=== PATIENT | female | born 1970 | race Caucasian/White ===

== ENCOUNTER 2022-08-22 09:51 | Emergency (ER) | payer MEDICAID ==
[2022-08-22 10:35] VITALS: BP 122/84; PULSE 89; O2SAT 96
[2022-08-22 11:01] LABS: Appearance Clear; Bacteria None Seen /HPF; Bilirubin Negative; Blood Moderate; Epithelial Cells Rare /HPF; Glucose, Urine Negative; Hyaline Casts NONE SEEN /LPF; Ketones Negative; Leukocyte Esterase Negative; Nitrite Negative; Ph 5.5; Protein,Urine Dip Negative; Specific Gravity 1.015
[2022-08-22 11:04] LABS: ADD URINE CULTURE? NO (NO)
[2022-08-22 11:17] LABS: Absolute Neutrophil Ct (ANC) 4.27 x10^3/uL; BASOPHIL % 0.8 % (0.0-0.4); Basophil (Absolute #) 0.06 x10^3/uL; Eosinophil % 2.6 %; Eosinophil (Absolute #) 0.19 x10^3/uL; Hematocrit 42.7 %; Hemoglobin 14.4 g/dL; IMMATURE GRAN # 0.03 x10^3u/L; IMMATURE GRAN % 0.4 %; Lymphocyte (Absolute #) 2.23 x10^3/uL; Lymphocytes % 30.3 %; Mean Cell Volume 100.9 fL; Mean Corpuscular Hgb Concent. 33.7 g/dL; Mean Platelet Volume 9.2 fL; Monocyte (Absolute #) 0.58 x10^3/uL; Monocytes % 7.9 % (0.0-12.0); Platelet Count 278 x10^3/uL; Red Blood Count 4.23 x10^6/uL; Red Cell Distribution Width 12.3 %; White Blood Count 7.4 x10^3/uL
[2022-08-22 11:33] LABS: ALBUMIN 4.4 g/dL (3.5-5.0); ALKALINE PHOSPHATASE 118 U/L (38-126); AMYLASE 76 U/L (30-110); ANION GAP 9.6 MEQ/L (5-15); BLOOD UREA NITROGEN 13 mg/dL (7-17); CHLORIDE 107 mmol/L (98-107); Calcium 9.1 mg/dL (8.4-10.2); Carbon Dioxide 25 mmol/L (22-30); Creatinine 1 0.49 mg/dL (0.52-1.04); EST GLOMERULAR FILTRATION RATE > 60.0 ML/MIN; Glucose 128 mg/dL (74-106); LIPASE 44 U/L (23-300); SGOT/AST 22 U/L (14-36); SGPT/ALT 23 U/L (0-35); SODIUM 138 mmol/L (137-145); Total Protein 7.3 g/dL (6.3-8.2)
--- NOTE | 2022-08-22 11:45 | ERPHSYRPT ---
- History of Present Illness Historian: patient Exam Limitations: no limitations Patient Subjective Stated Complaint: Patient states that she has been having some discomfort/ pressure in her left epigastric area right under the breast, The patient states that is started about a couple weeks ago that but that the pressure is getting worse. Patient states that when she is in bed she can feel it move around. " It feels like a bubble moving around". Patient states that there isnt any pain just dicomfort at this time. The area is hard firm lump under left breast. Triage Nursing Assessment: Pt A&O x3. Ambulated to the bed per self. Patient lungs clear, heart sounds WNL. Skin CDI. Patient has left epigastric pain under the left breast. Upon palpation there is a firm area under left breast. Patient sattes that it doesn't hurt it is just discomfort. Physician History: 52 yo Wf w LUQ pain x 2 wks. Pain is 3/10 but has been up to 7/10. Nothing makes the pain better or worse and N/V/D/melena/hematochezia/dysuria/hematuria/fever/cough/coryza/chest pain are all denied. Timing/Duration: other (2 wks) Activities at Onset: rest Quality: pressure Abdominal Pain Onset Location: LUQ Pain Radiation: no radiation Severity of Pain-Max: moderate Severity of Pain-Current: mild Modifying Factors: Improves With: nothing Associated Symptoms: denies symptoms Previous symptoms: no prior history Travel Risk - International Travel Have you traveled outside of the country in past 3 weeks: No - Coronavirus Screening Are you exhibiting any of the following symptoms?: No Close contact with a COVID-19 positive Pt in past 14-21 Days: No - Vaccine Status Have you recieved a Covid-19 vaccination: No - Review of Systems Constitutional: No Symptoms Eyes: No Symptoms Ears, Nose, & Throat: No Symptoms Respiratory: No Symptoms Cardiac: No Symptoms Abdominal/Gastrointestinal: No Symptoms, Abdominal Pain Genitourinary Symptoms: No Symptoms Musculoskeletal: No Symptoms Skin: No Symptoms Neurological: No Symptoms Psychological: No Symptoms Endocrine: No Symptoms Hematologic/Lymphatic: No Symptoms Immunological/Allergic: No Symptoms - Past Medical History Neurological History: Migraines ENT History: No Pertinent History Cardiac History: Congestive Heart Failure Respiratory History: CHF Endocrine Medical History: No Pertinent History Musculoskeletal History: No Pertinent History GI Medical History: No Pertinent History History: No Pertinent History Psycho-Social History: No Pertinent History Female Reproductive Disorders: No Pertinent History - Past Surgical History Past Surgical History: Yes Neuro Surgical History: No Pertinent History Cardiac: No Pertinent History Respiratory: No Pertinent History Gastrointestinal: No Pertinent History Genitourinary: No Pertinent History Musculoskeletal: No Pertinent History Female Surgical History: No Pertinent History, Tubal Ligation, Other - Social History Smoking Status: Current every day smoker How long have you smoked: 35 Drug Use: none Patient Lives Alone: No - Nursing Vital Signs Nursing Vital Signs: Initial Vital Signs Temperature 98 F 08/22/22 10:14 Pulse Rate 89 08/22/22 10:14 Respiratory Rate 16 08/22/22 10:14 Blood Pressure 122/84 08/22/22 10:14 O2 Sat by Pulse Oximetry 96 08/22/22 10:14 Pain Scale Pain Intensity 4 WNL - Physical Exam General Appearance: no apparent distress Eye Exam: PERRL/EOMI, eyes nml inspection Ears, Nose, Throat Exam: normal ENT inspection, TMs normal, pharynx normal, moist mucous membranes Neck Exam: normal inspection, non-tender, supple, full range of motion, No meningismus, No mass, No Brudzinski, No Kernig's, No carotid bruit Respiratory Exam: normal breath sounds, lungs clear Cardiovascular Exam: regular rate/rhythm, normal heart sounds, normal peripheral pulses, capillary refill <2 sec, No murmur Gastrointestinal/Abdomen Exam: soft, normal bowel sounds, tenderness (Mild LUQ TTP wo guarding or rebound) Back Exam: normal inspection, normal range of motion, No CVA tenderness, No vertebral tenderness Extremity Exam: normal inspection, normal range of motion Neurologic Exam: alert, oriented x 3, cooperative, 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, normal mood/affect, nml cerebellar function, nml station & gait, sensation nml, No motor deficits, No sensory deficit Skin Exam: normal color, warm, dry Lymphatic Exam: No adenopathy SpO2 Interpretation: normal SpO2: 96 O2 Delivery: Room Air - Course Nursing assessment & vital signs reviewed: Yes - CT Exams Abdomen/Pelvis CT Interpretation: Discussed w/radiologist (L renal cortical calcification/Fecal stasis/Uterine fibroid) Ordered Tests: Active Orders 24 hr Category Date Time Status ABDOMEN AND PELVIS W/0 CONTRAS [CT] Stat Exams 08/22/22 11:57 Completed AMYLASE Stat Lab 08/22/22 08:00 Completed CBC W DIFF Stat Lab 08/22/22 08:00 Completed CMP Stat Lab 08/22/22 08:00 Completed LIPASE Stat Lab 08/22/22 08:00 Completed TROPONIN Q4H Lab 08/22/22 08:00 Completed UA W/RFX UR CULTURE Stat Lab 08/22/22 10:48 Completed Lab/Rad Data: Laboratory Result Diagrams 08/22/22 08:00 08/22/22 08:00 Laboratory Results 08/22/22 08/22/22 08/22/22 Range/Units 10:48 08:00 08:00 WBC x10^3/uL RBC x10^6/uL Hgb g/dL Hct % MCV fL MCH pg MCHC g/dL RDW % Plt Count x10^3/uL MPV fL Gran % % Immature Gran % (Auto) % Nucleat RBC Rel Count % Eos # (Auto) x10^3/uL Immature Gran # (Auto) x10^3u/L Absolute Lymphs (auto) x10^3/uL Absolute Monos (auto) x10^3/uL Absolute Nucleated RBC x10^3u/L Lymphocytes % % Monocytes % (0.0-12.0) % Eosinophils % % Basophils % (0.0-0.4) % Absolute Granulocytes x10^3/uL Basophils # x10^3/uL Sodium 138 (137-145) mmol/L Potassium 4.0 (3.5-5.1) mmol/L Chloride 107 (98-107) mmol/L Carbon Dioxide 25 (22-30) mmol/L Anion Gap 9.6 (5-15) MEQ/L BUN 13 (7-17) mg/dL Creatinine 0.49 L (0.52-1.04) mg/dL Estimated GFR > 60.0 ML/MIN Glucose 128 H (74-106) mg/dL Calcium 9.1 (8.4-10.2) mg/dL Total Bilirubin 0.50 (0.2-1.3) mg/dL AST 22 (14-36) U/L ALT 23 (0-35) U/L Alkaline Phosphatase 118 (38-126) U/L Troponin I < 0.012 (0.000-0.034) ng/mL Serum Total Protein 7.3 (6.3-8.2) g/dL Albumin 4.4 (3.5-5.0) g/dL Amylase 76 (30-110) U/L Lipase 44 (23-300) U/L Urine Color Yellow Urine Appearance Clear Urine pH 5.5 Ur Specific [place] 1.015 Urine Protein Negative Urine Glucose (UA) Negative mg/dL Urine Ketones Negative Urine Blood Moderate Urine Nitrite Negative Urine Bilirubin Negative Urine Urobilinogen 1.0 mg/dL Ur Leukocyte Esterase Negative U Hyaline Cast (Auto) NONE SEEN /LPF Urine Microscopic RBC 11-20 /HPF Urine Microscopic WBC 3-5 /HPF Ur Epithelial Cells Rare /HPF Urine Bacteria None Seen /HPF Urine Culture Reflexed NO (NO) 08/22/22 Range/Units 08:00 WBC 7.4 x10^3/uL RBC 4.23 x10^6/uL Hgb 14.4 g/dL Hct 42.7 % MCV 100.9 fL MCH 34.0 pg MCHC 33.7 g/dL RDW 12.3 % Plt Count 278 x10^3/uL MPV 9.2 fL Gran % 58.0 % Immature Gran % (Auto) 0.4 % Nucleat RBC Rel Count 0.0 % Eos # (Auto) 0.19 x10^3/uL Immature Gran # (Auto) 0.03 x10^3u/L Absolute Lymphs (auto) 2.23 x10^3/uL Absolute Monos (auto) 0.58 x10^3/uL Absolute Nucleated RBC 0.00 x10^3u/L Lymphocytes % 30.3 % Monocytes % 7.9 (0.0-12.0) % Eosinophils % 2.6 % Basophils % 0.8 (0.0-0.4) % Absolute Granulocytes 4.27 x10^3/uL Basophils # 0.06 x10^3/uL Sodium (137-145) mmol/L Potassium (3.5-5.1) mmol/L Chloride (98-107) mmol/L Carbon Dioxide (22-30) mmol/L Anion Gap (5-15) MEQ/L BUN (7-17) mg/dL Creatinine (0.52-1.04) mg/dL Estimated GFR ML/MIN Glucose (74-106) mg/dL Calcium (8.4-10.2) mg/dL Total Bilirubin (0.2-1.3) mg/dL AST (14-36) U/L ALT (0-35) U/L Alkaline Phosphatase (38-126) U/L Troponin I (0.000-0.034) ng/mL Serum Total Protein (6.3-8.2) g/dL Albumin (3.5-5.0) g/dL Amylase (30-110) U/L Lipase (23-300) U/L Urine Color Urine Appearance Urine pH Ur Specific [place] Urine Protein Urine Glucose (UA) mg/dL Urine Ketones Urine Blood Urine Nitrite Urine Bilirubin Urine Urobilinogen mg/dL Ur Leukocyte Esterase U Hyaline Cast (Auto) /LPF Urine Microscopic RBC /HPF Urine Microscopic WBC /HPF Ur Epithelial Cells /HPF Urine Bacteria /HPF Urine Culture Reflexed (NO) - Progress Progress Note: 08/22/22 13:30 Nursing note and vital signs reviewed All labs and CT results reviewed and shared w pt Appointment made w Dr. Parks for hematuria Pt to follow up with Dr. Avila about abdominal pain No food or housing insecurities noted Additional history per daughter Pt required no pain meds during stay because pain is minimal during entire stay Pt upset that no etiology of pain obtained. I explained to pt that ER visits for abdominal pain nation wide yield a 50% unknown cause rate but that major problems, including appendicitis, cholecystitis, ureterolithiasis, ischemic bowel, bowel obstruction were highly unlikely. 08/22/22 21:47 Counseled pt/family regarding: lab results, diagnosis, need for follow-up, rad results - Departure Departure Disposition: Home Clinical Impression: Abdominal pain, Hematuria Condition: Stable Critical Care Time: No Referrals: DOCTOR,NO FAMILY [Primary Care Provider] - Follow up/PCP as directed Instructions: Blood in the Urine (Hematuria), Adult (DC) Additional Instructions: Dr. Parks 08/30/22 1:[address] Avila about abdominal pain Return to ER for increasing abdominal pain or temperature greater than 100.5
--- NOTE | 2022-08-22 13:02 | XRAY ---
Indication: Left upper quadrant pain and hematuria 2 weeks. Multiple contiguous axial images obtained through the abdomen and pelvis without contrast using renal stone protocol. Comparison: None Lung bases are clear. Heart not enlarged. Left mid kidney demonstrates 3 mm nonspecific cortical calcification. No renal calculus or evidence for obstructive uropathy in either system. Noncontrasted stomach and bowel loops appear nonobstructed with normal appendix. Mild diffuse scattered colonic fecal debris throughout. Uterus demonstrates 5 cm fundal calcified fibroid. Incidental bilateral tubal ligation clips. No free fluid/air. Remaining liver, gallbladder, pancreas, spleen, adrenal glands, kidneys, ureters, bladder, and uterus are unremarkable for noncontrast exam. Mild scattered aortoiliac calcifications without AAA. Osseous structures intact. No ventral or inguinal hernias. Impression: 1. 3 mm nonspecific left renal cortical calcification. No renal calculus or evidence for obstructive uropathy in either system. 2. Mild diffuse fecal stasis. 3. Large uterine calcified fibroid. 4. Remaining CT abdomen/pelvis without contrast exam is negative.
== END 2022-08-22 13:44 | disposition home or self-care (01) ==
LOC: ED 09:51
DX: R10.12 Left upper quadrant pain (principal); R31.9 Hematuria, unspecified; I50.9 Heart failure, unspecified; Z28.310 Unvaccinated for COVID-19; Z72.0 Tobacco use
CPT/HCPCS: 36415; 74176; 80053; 81001; 82150; 83690; 84484; 85025; 99283